=== PATIENT | male | born 1955 | race Caucasian/White ===

== ENCOUNTER 2017-08-22 14:27 | Inpatient (IN) | payer OTHER ==
[2017-08-22] MEDS ORDERED: SODIUM CHLORIDE 0.9% 1,000 ML IV STA (14:53)
[2017-08-22] MEDS ORDERED: IBUPROFEN IV 800 MG in SODIUM CHLORIDE 0.9% 250 ML IV ONE (14:55)
[2017-08-22] MEDS ORDERED: ACETAMINOPHEN IV (For NPO) 1,000 MG in EMPTY BAG 1 BAG IVPB STA (14:56)
--- NOTE | 2017-08-22 15:01 | ED ---
General Adult HPI - General Chief complaint: Abdominal Pain Stated complaint: appendix-sent by Time Seen by Provider: 08/22/17 14:30 Source: patient, RN notes reviewed Mode of arrival: ambulatory Limitations: no limitations - History of Present Illness Initial comments: This is a 61-year-old male who presents to the emergency room complaining of right lower quadrant pain patient states pain started the either Tuesday or Tuesday. Patient states the pain has gotten worse and is definitely worse with movement and hitting any bumps while driving the car. Patient states he went to the urgent care they sent her to the hospital. Patient denies any fever or chills. Patient denies any nausea or vomiting. Patient states he ate yesterday and was still hungry today. Patient denies any recent fever chills or cough patient denies any difficulty breathing shortness of breath. Patient denies any chest pain. Patient denies headache patient denies numbness weakness. Patient denies lightheadedness or dizziness. Patient denies any dysuria hematuria urinary frequency. - Related Data Home Medications Medication Instructions Recorded Confirmed No Known Home Medications [No 08/22/17 08/22/17 Known Home Medications] Allergies Allergy/AdvReac Type Severity Reaction Status Date / Time No Known Allergies Allergy Verified 08/22/17 15:06 Review of Systems ROS Statement: Those systems with pertinent positive or pertinent negative responses have been documented in the HPI. ROS Other: All systems not noted in ROS Statement are negative. Past Medical History Past Medical History: Atrial Fibrillation History of Any Multi-Drug Resistant Organisms: None Reported Additional Past Surgical History / Comment(s): cardiac ablation Past Psychological History: No Psychological Hx Reported Smoking Status: Never smoker Past Alcohol Use History: Occasional Past Drug Use History: Unable to Obtain General Exam - General Exam Comments Initial Comments: GENERAL: Patient is well-developed and well-nourished. Patient is nontoxic and well- hydrated and is in moderate distress. ENT: Neck is soft and supple. No significant lymphadenopathy is noted. Oropharynx is clear. Moist mucous membranes. Neck has full range of motion without eliciting any pain. EYES: The sclera were anicteric and conjunctiva were pink and moist. Extraocular movements were intact and pupils were equal round and reactive to light. Eyelids were unremarkable. PULMONARY: Unlabored respirations. Good breath sounds bilaterally. No audible rales rhonchi or wheezing was noted. CARDIOVASCULAR: There is a regular rate and rhythm without any murmurs gallops or rubs. Femoral pulses are equal bilaterally ABDOMEN: Patient has rebound tenderness on the right lower quadrant. SKIN: Skin is clear with no lesions or rashes and otherwise unremarkable. NEUROLOGIC: Patient is alert and oriented x3. Cranial nerves II through XII are grossly intact. Motor and sensory are also intact. Normal speech, volume and content. Symmetrical smile. MUSCULOSKELETAL: Normal extremities with adequate strength and full range of motion. LYMPHATICS: No significant lymphadenopathy is noted PSYCHIATRIC: Normal psychiatric evaluation. Normal interpersonal interactions appears functionally intact in deals appropriately with others. No signs of depression. No signs of anxiety. Limitations: no limitations Course Vital Signs 08/22/17 08/22/17 14:29 14:52 Temperature 99.9 F H 103.1 F H Pulse Rate 89 Respiratory 18 Rate Blood Pressure 137/82 O2 Sat by Pulse 97 Oximetry Medical Decision Making - Medical Decision Making EKG shows normal sinus rhythm at 82 bpm TN interval 150 QRS is 90 QT interval 350 QTC is 418. Patient's EKG shows no ST segment elevation or depression or T wave abnormalities are noted. CAT scan showed acute appendicitis. I spoke with Dr. Smith. Dr. Smith agreed to accept the admission I wrote admitting orders. - Lab Data Result diagrams: 08/22/17 14:45 08/22/17 14:45 Lab Results 08/22/17 08/22/17 08/22/17 Range/Units 14:45 14:45 14:45 WBC 10.8 H (3.8-10.6) k/uL RBC 5.34 (4.30-5.90) m/uL Hgb 15.1 (13.0-17.5) gm/dL Hct 45.4 (39.0-53.0) % MCV 85.0 (80.0-100.0) fL MCH 28.3 (25.0-35.0) pg MCHC 33.3 (31.0-37.0) g/dL RDW 13.8 (11.5-15.5) % Plt Count 192 (150-450) k/uL Neutrophils % 81 % Lymphocytes % 11 % Monocytes % 6 % Eosinophils % 1 % Basophils % 0 % Neutrophils # 8.7 H (1.3-7.7) k/uL Lymphocytes # 1.2 (1.0-4.8) k/uL Monocytes # 0.7 (0-1.0) k/uL Eosinophils # 0.1 (0-0.7) k/uL Basophils # 0.0 (0-0.2) k/uL PT (9.0-12.0) sec INR (<1.2) APTT (22.0-30.0) sec Sodium 140 (137-145) mmol/L Potassium 4.3 (3.5-5.1) mmol/L Chloride 103 (98-107) mmol/L Carbon Dioxide 23 (22-30) mmol/L Anion Gap 14 mmol/L BUN 15 (9-20) mg/dL Creatinine 1.00 (0.66-1.25) mg/dL Est GFR (CKD-EPI)AfAm >90 (>60 ml/min/1.73 sqM) Est GFR (CKD-EPI)NonAf 80 (>60 ml/min/1.73 sqM) Glucose 100 H (74-99) mg/dL Plasma Lactic Acid Titi 1.5 (0.7-2.0) mmol/L Calcium 9.2 (8.4-10.2) mg/dL Total Bilirubin 1.3 (0.2-1.3) mg/dL AST 24 (17-59) U/L ALT 30 (21-72) U/L Alkaline Phosphatase 39 (38-126) U/L Total Protein 6.9 (6.3-8.2) g/dL Albumin 4.0 (3.5-5.0) g/dL Amylase 56 (30-110) U/L Lipase 88 (23-300) U/L 08/22/17 Range/Units 14:45 WBC (3.8-10.6) k/uL RBC (4.30-5.90) m/uL Hgb (13.0-17.5) gm/dL Hct (39.0-53.0) % MCV (80.0-100.0) fL MCH (25.0-35.0) pg MCHC (31.0-37.0) g/dL RDW (11.5-15.5) % Plt Count (150-450) k/uL Neutrophils % % Lymphocytes % % Monocytes % % Eosinophils % % Basophils % % Neutrophils # (1.3-7.7) k/uL Lymphocytes # (1.0-4.8) k/uL Monocytes # (0-1.0) k/uL Eosinophils # (0-0.7) k/uL Basophils # (0-0.2) k/uL PT 10.2 (9.0-12.0) sec INR 1.0 (<1.2) APTT 22.5 (22.0-30.0) sec Sodium (137-145) mmol/L Potassium (3.5-5.1) mmol/L Chloride (98-107) mmol/L Carbon Dioxide (22-30) mmol/L Anion Gap mmol/L BUN (9-20) mg/dL Creatinine (0.66-1.25) mg/dL Est GFR (CKD-EPI)AfAm (>60 ml/min/1.73 sqM) Est GFR (CKD-EPI)NonAf (>60 ml/min/1.73 sqM) Glucose (74-99) mg/dL Plasma Lactic Acid Titi (0.7-2.0) mmol/L Calcium (8.4-10.2) mg/dL Total Bilirubin (0.2-1.3) mg/dL AST (17-59) U/L ALT (21-72) U/L Alkaline Phosphatase (38-126) U/L Total Protein (6.3-8.2) g/dL Albumin (3.5-5.0) g/dL Amylase (30-110) U/L Lipase (23-300) U/L Disposition Clinical Impression: Acute appendicitis Disposition: ADMITTED IP TO THIS [facility] Referrals: Arturo Torres MD [Primary Care Provider] - 1-2 days Time of Disposition: 16:17
[2017-08-22 15:14] LABS: Basophils % (A) 0 %; Eosinophils # (A) 0.1 k/uL (0-0.7); Eosinophils % (A) 1 %; HCT 45.4 % (39.0-53.0); HGB 15.1 gm/dL (13.0-17.5); Lymphocytes # (A) 1.2 k/uL (1.0-4.8); Lymphocytes % (A) 11 %; MCH 28.3 pg (25.0-35.0); MCHC 33.3 g/dL (31.0-37.0); Mean Platelet Volume 7.1; Monocytes # (A) 0.7 k/uL (0-1.0); Monocytes % (A) 6 %; Neutrophils # (A) 8.7 k/uL (1.3-7.7); Neutrophils % (A) 81 %; Platelet Count 192 k/uL (150-450); RBC 5.34 m/uL (4.30-5.90); RDW 13.8 % (11.5-15.5); WBC 10.8 k/uL (3.8-10.6)
[2017-08-22 15:25] LABS: ALT 30 U/L (21-72); AST 24 U/L (17-59); Alkaline Phosphatase 39 U/L (38-126); Amylase 56 U/L (30-110); Anion Gap 14 mmol/L; Blood Urea Nitrogen 15 mg/dL (9-20); Calcium 9.2 mg/dL (8.4-10.2); Carbon Dioxide 23 mmol/L (22-30); Chloride 103 mmol/L (98-107); Glucose 100 mg/dL (74-99); Lipase 88 U/L (23-300); Potassium 4.3 mmol/L (3.5-5.1); Sodium 140 mmol/L (137-145); Total Bilirubin 1.3 mg/dL (0.2-1.3); Total Protein 6.9 g/dL (6.3-8.2)
[2017-08-22 15:31] LABS: Partial Thromboplastin Time 22.5 sec (22.0-30.0); Prothrombin Time 10.2 sec (9.0-12.0)
[2017-08-22] MEDS ORDERED: PIPERACILLIN-TAZOBACTAM 3.375 GM in DEXTROSE/WATER 1 50ML.BAG IVPB STA (16:11)
--- NOTE | 2017-08-22 16:13 | CT ---
EXAMINATION TYPE: CT abdomen pelvis w con DATE OF EXAM: 08/22/2017 COMPARISON: NONE HISTORY: RLQ pain x2 days CT DLP: 1847 mGycm, Automated Exposure Control for Dose Reduction was Utilized. CONTRAST: CT scan of the abdomen and pelvis is performed without oral but with IV Contrast, patient injected wi th 100 mL of Isovue 300. FINDINGS: LUNG BASES: Calcified 2 mm nodule or granuloma left lung base axial image 9 is noted laterally. LIVER/GB: No significant abnormality is appreciated. PANCREAS: No significant abnormality is seen. SPLEEN: No significant abnormality is seen. ADRENALS: No significant abnormality is seen. KIDNEYS: There is simple appearing 3.3 cm exophytic cyst laterally upper to mid pole level right kidn ey axial image 28 series 3. There is subcentimeter low dense lesion upper to mid pole level series 7 image 31 that is too small to further characterize but presumed benign BOWEL: There is large appendicolith at base of appendix with additional smaller appendicoliths at mid to distal segment. Appendix is abnormally dilated most prominent at the base measuring up to 14 mm i n diameter axial image 57. There is moderate ill-defined surrounding fluid and fat stranding. The CT findings are consistent with acute appendicitis. No well-formed fluid collection or abscess is seen. No pneumoperitoneum is noted. There are a few diverticula scattered throughout the colon. There is no CT evidence for acute diverti culitis. There is no suspicious small or large bowel dilatation. PROSTATE/SEMINAL VESICLES: A few scattered pelvic phleboliths are seen. LYMPH NODES: No greater than 1cm abdominal or pelvic lymph nodes are appreciated. OSSEOUS STRUCTURES: There is moderate multilevel spurring in the thoracic spine. There is moderate di sc space narrowing with vacuum disc phenomenon at lumbosacral junction. There is facet arthropathy in the lower lumbar spine. OTHER: There is moderate fat-containing right inguinal hernia. There are smaller sized fat-containing left inguinal hernia IMPRESSION: CT findings consistent with acute appendicitis as detailed above. Critical results communicated to ordering ER physician via telephone at time of dictation.
[2017-08-22] MEDS ORDERED: SODIUM CHLORIDE 0.9% 1,000 ML IV ONE (16:17)
--- NOTE | 2017-08-22 17:04 | P.GSHP ---
History of Present Illness H&P Date: 08/22/17 Chief Complaint: Right lower quadrant pain This is a 61-year-old male who's had a three-day history of intermittent right lower quadrant pain. Patient presents to the emergency room today due to the pain being present on . He had a CAT scan performed which shows evidence of early appendicitis. Patient is resting in bed comfortable. He denies a significant pain while at rest. He denies any nausea or vomiting. He is hungry. Past Medical History Past Medical History: Atrial Fibrillation History of Any Multi-Drug Resistant Organisms: None Reported Additional Past Surgical History / Comment(s): cardiac ablation Past Psychological History: No Psychological Hx Reported Smoking Status: Never smoker Past Alcohol Use History: Occasional Past Drug Use History: Unable to Obtain Medications and Allergies Home Medications Medication Instructions Recorded Confirmed Type No Known Home Medications [No 08/22/17 08/22/17 History Known Home Medications] Allergies Allergy/AdvReac Type Severity Reaction Status Date / Time No Known Allergies Allergy Verified 08/22/17 15:06 Surgical - Exam Vital Signs Temp Pulse Resp BP Pulse Ox 99.9 F H 89 18 137/82 97 08/22/17 14:29 08/22/17 14:29 08/22/17 14:29 08/22/17 14:29 08/22/17 14:29 - General well developed, no distress - Eyes PERRL - ENT normal pinna - Neck no masses - Respiratory normal expansion - Cardiovascular Rhythm: regular - Abdomen Right lower quadrant pain. There is no rebound or guarding. Abdomen: soft Results - Labs 08/22/17 14:45 08/22/17 14:45 Abnormal Lab Results - Last 24 Hours (Table) 08/22/17 08/22/17 Range/Units 14:45 14:45 WBC 10.8 H (3.8-10.6) k/uL Neutrophils # 8.7 H (1.3-7.7) k/uL Glucose 100 H (74-99) mg/dL Diabetes panel 08/22/17 Range/Units 14:45 Sodium 140 (137-145) mmol/L Potassium 4.3 (3.5-5.1) mmol/L Chloride 103 (98-107) mmol/L Carbon Dioxide 23 (22-30) mmol/L BUN 15 (9-20) mg/dL Creatinine 1.00 (0.66-1.25) mg/dL Glucose 100 H (74-99) mg/dL Calcium 9.2 (8.4-10.2) mg/dL AST 24 (17-59) U/L ALT 30 (21-72) U/L Alkaline Phosphatase 39 (38-126) U/L Total Protein 6.9 (6.3-8.2) g/dL Albumin 4.0 (3.5-5.0) g/dL Calcium panel 08/22/17 Range/Units 14:45 Calcium 9.2 (8.4-10.2) mg/dL Albumin 4.0 (3.5-5.0) g/dL Pituitary panel 08/22/17 Range/Units 14:45 Sodium 140 (137-145) mmol/L Potassium 4.3 (3.5-5.1) mmol/L Chloride 103 (98-107) mmol/L Carbon Dioxide 23 (22-30) mmol/L BUN 15 (9-20) mg/dL Creatinine 1.00 (0.66-1.25) mg/dL Glucose 100 H (74-99) mg/dL Calcium 9.2 (8.4-10.2) mg/dL Adrenal panel 08/22/17 Range/Units 14:45 Sodium 140 (137-145) mmol/L Potassium 4.3 (3.5-5.1) mmol/L Chloride 103 (98-107) mmol/L Carbon Dioxide 23 (22-30) mmol/L BUN 15 (9-20) mg/dL Creatinine 1.00 (0.66-1.25) mg/dL Glucose 100 H (74-99) mg/dL Calcium 9.2 (8.4-10.2) mg/dL Total Bilirubin 1.3 (0.2-1.3) mg/dL AST 24 (17-59) U/L ALT 30 (21-72) U/L Alkaline Phosphatase 39 (38-126) U/L Total Protein 6.9 (6.3-8.2) g/dL Albumin 4.0 (3.5-5.0) g/dL - Imaging CT scan - pelvis: report reviewed (Computed tomography scan shows evidence of appendicitis. There is no abscess or phlegmon.) Assessment and Plan Assessment: Early appendicitis. Patient will be taken for laparoscopic appendectomy in the a.m.
[2017-08-22 18:17] VITALS: BMI 31.3
[2017-08-22] MEDS ORDERED: HYDROmorphone 0.5 MG/0.5 ML SYRINGE IVP PRN ×2 (20:31→22:57)
[2017-08-22] MEDS ORDERED: ACETAMINOPHEN TAB 325 MG TAB PO PRN (20:31)
[2017-08-22 23:05] LABS: Appearance,Urine Clear (Clear); Bilirubin,Urine Negative (Negative); Blood,Urine Trace (Negative); Color,Urine Yellow; Glucose,Urine (UA) Negative (Negative); Ketones,Urine 1+ (Negative); Leukocyte Esterase,Urine Negative (Negative); Mucus,Urine Rare /hpf; Nitrite,Urine Negative (Negative); PH, Urine 5.5 (5.0-8.0); Protein,Urine Trace (Negative); RBC,Urine 2 /hpf (0-5); Squamous Epithelial Cell,Urine 1 /hpf (0-4); Urobilinogen,Urine <2.0 mg/dL (<2.0); WBC,Urine 1 /hpf (0-5)
[2017-08-22 23:07] LABS: Specific Gravity,Urine >1.050 (1.001-1.035)
[2017-08-23] MEDS ORDERED: MORPHINE SULFATE 2 MG/ML SYRINGE IVP STA
[2017-08-23 00:11] LABS: Glucose,Whole Blood 84 mg/dL (75-99)
[2017-08-23 00:20] LABS: HCT 39.4 % (39.0-53.0); HGB 13.4 gm/dL (13.0-17.5); MCH 29.8 pg (25.0-35.0); MCV 87.8 fL (80.0-100.0); Mean Platelet Volume 6.8; Platelet Count 156 k/uL (150-450); RBC 4.49 m/uL (4.30-5.90); RDW 13.8 % (11.5-15.5)
[2017-08-23 00:30] LABS: Anion Gap 15 mmol/L; Blood Urea Nitrogen 13 mg/dL (9-20); Calcium 8.3 mg/dL (8.4-10.2); Carbon Dioxide 20 mmol/L (22-30); Chloride 104 mmol/L (98-107); Glucose 114 mg/dL (74-99); Potassium 4.1 mmol/L (3.5-5.1); Sodium 139 mmol/L (137-145)
[2017-08-23] MEDS ORDERED: SODIUM CHLORIDE 0.9% 1,000 ML IV ONE ×3 (01:21→07:36)
[2017-08-23] MEDS: PIPERACILLIN-TAZOBACTAM 3.375 GM in DEXTROSE/WATER 1 50ML.BAG IVPB SCH ×4 (01:59→23:27)
[2017-08-23] MEDS ORDERED: ACETAMINOPHEN TAB 325 MG TAB PO STA (02:10)
[2017-08-23] MEDS: KETOROLAC 30 MG/ML 1 ML VIAL IVP SCH ×6 (02:21→23:27)
[2017-08-23] MEDS: SODIUM CHLORIDE 0.9% 1,000 ML IV SCH ×4 (02:31→21:14)
[2017-08-23] MEDS: MORPHINE SULFATE 2 MG/ML SYRINGE IVP PRN ×3 (02:31→19:18)
[2017-08-23] MEDS ORDERED: DEXAMETHASONE SOD PHOSPHATE 10 MG/ML 1 ML VIAL IV ONE (07:38)
[2017-08-23] MEDS ORDERED: HEPARIN SODIUM,PORCINE 5,000 UNIT/ML 1 ML VIAL SQ ONE (07:38)
[2017-08-23] MEDS ORDERED: ONDANSETRON 4 MG/2 ML VIAL IVP ONE (07:38)
[2017-08-23] MEDS ORDERED: LIDOCAINE 1% INJ 10MG/ML (20 ML MDV) ONE (07:50)
[2017-08-23] MEDS ORDERED: fentaNYL (PF) 50 MCG/ML 2 ML AMP ONE (07:50)
[2017-08-23] MEDS ORDERED: GLYCOPYRROLATE 0.2 MG/ML 2 ML VIAL ONE (07:50)
[2017-08-23] MEDS ORDERED: ACETAMINOPHEN IV (For NPO) 1,000 MG/100 ML VIAL ONE (07:50)
[2017-08-23] MEDS ORDERED: ePHEDrine SULFATE/0.9% NACL/PF 50 MG/5 ML SYRINGE IV ONE (07:50)
[2017-08-23] MEDS ORDERED: PROPOFOL 10 MG/ML 20 ML VIAL IV ONE (07:50)
[2017-08-23] MEDS ORDERED: ROCURONIUM BROMIDE 10 MG/ML 10 ML VIAL IV ONE (07:50)
[2017-08-23] MEDS ORDERED: MIDAZOLAM 2 MG/2 ML VIAL ONE (07:50)
[2017-08-23] MEDS ORDERED: SUCCINYLCHOLINE CHLORIDE 100 MG/5 ML SYR IV ONE (07:50)
[2017-08-23] MEDS ORDERED: NEOSTIGMINE 1 MG/ML 10 ML VIAL ONE (07:50)
[2017-08-23] MEDS ORDERED: HYDROmorphone (PF) 1 MG/ML ONE (07:50)
[2017-08-23] MEDS ORDERED: ROPIVACAINE 5 MG/ML 30 ML VIAL MISCELLANE ONE (08:21)
[2017-08-23] MEDS ORDERED: LACTATED RINGERS 1,000 ML IV ONE ×2 (08:23→09:11)
--- NOTE | 2017-08-23 09:10 | P.OP ---
Date of Procedure: 08/23/17 Preoperative Diagnosis: Acute appendicitis Postoperative Diagnosis: Acute appendicitis with peritonitis, perforated appendix Procedure(s) Performed: Laparoscopic appendectomy Anesthesia: LEEANN Surgeon: Jules Smith Estimated Blood Loss (ml): 25 Pathology: other (Appendix and base of cecum) Condition: stable Disposition: PACU Description of Procedure: The patient's placed the operative table in the supine position. He received general anesthesia. His abdomen was prepped and draped in usual sterile fashion. An infra umbilical skin incision was made and then using a Arsen clamp the fascia was grasped and then a Veress needles placed into the peritoneal cavity. Position of the Veress needle was confirmed with positive drop test and then the abdomen was insufflated. After adequate insufflation a 5 mm trocar was placed in the pleural cavity and then the laparoscope was placed into the perineal cavity. Next a 12 mm trochars placed in the epigastric position. And a 5 mm trochars placed the suprapubic position. The patient had obvious inflammation of the parietal peritoneum. The cecum was visualized. And then the cecum was rotated medially. And at the base the cecum there was an opening in the appendix. And a fecalith was seen. The fecalith was aspirated. And then the mesial appendix was divided using the Harmonic scissors. The appendiceal stump was divided with the Harmonic scissors. And the appendix was withdrawn through a Endo Catch. Due to the opening of the appendix at the base the cecum a limited see Any was performed by mobilizing the cecum and then using the MAILE stapler to perform a partial Cecetomy. The abdomen was was then irrigated. The abdomen was irrigated with 2 L of normal saline. A DARIA drain was placed into the pelvis and right colic gutter and brought out through the epigastric trocar site. The trochars withdrawn. He was closed interrupted 3-0 Monocryl suture.
[2017-08-23] MEDS ORDERED: BISACODYL 10 MG SUPP RECTAL PRN (09:11)
[2017-08-23] MEDS ORDERED: METOCLOPRAMIDE 5 MG/ML 2 ML VIAL IVP PRN (09:11)
[2017-08-23] MEDS ORDERED: HYDROmorphone 0.5 MG/0.5 ML SYRINGE IVP PRN (09:11)
[2017-08-23] MEDS ORDERED: NALOXONE 0.4 MG/ML 1 ML VIAL IV PRN (09:11)
[2017-08-23] MEDS ORDERED: traMADol 50 MG TAB PO PRN (09:11)
[2017-08-23] MEDS ORDERED: ONDANSETRON 4 MG/2 ML VIAL IVP PRN (09:11)
[2017-08-23] MEDS ORDERED: diphenhydrAMINE 50 MG/ML 1 ML VIAL IVP ONE (09:34)
--- NOTE | 2017-08-23 16:31 | CONS ---
CONSULTATION DATE OF CONSULTATION: 08/23/17 REASON FOR CONSULTATION: Medical management requested by Dr. Smith. CONSULTATION: This is a pleasant 60-year-old patient who follows with Dr. Torres, otherwise normally in good health. The patient had a history prior of atrial fibrillation treated with ablation. The patient presented with increasing abdominal pain coming on for a few days. No nausea, vomiting. No fever. CT scan that showed what appeared to be appendolith. The patient was taken to the OR by Dr. Smith, was found to have a perforated appendix with localized peritonitis. The patient has a drain in place. Abdominal pain is present. No nausea or vomiting. The patient is put on a clear liquid diet and IV Zosyn. REVIEW OF SYSTEMS: CONSTITUTIONAL: Tired. HEENT: None. RESPIRATORY: None. CARDIOVASCULAR: None. GASTROINTESTINAL: As above. GENITOURINARY: None. MUSCULOSKELETAL: None. DERMATOLOGIC, HEMATOLOGIC, LYMPHATIC. None. PSYCHIATRY: None. NEUROLOGICAL: None. PAST MEDICAL HISTORY: Atrial fibrillation with ablation. PAST SURGICAL HISTORY: None. SOCIAL HISTORY: Did smoke in the past. Alcohol occasionally. Patient works as a machinery mechanic. . FAMILY HISTORY: Reviewed, noncontributory to presentation. HOME MEDICATIONS: None. ALLERGIES: None. PHYSICAL EXAMINATION: Temperature 97.4, pulse 54, respiratory 18, blood pressure 107/69, pulse ox 98% on room air. GENERAL APPEARANCE: Well built, BMI 31.3, sitting up, tired appearing. EYES: Pupils equal. Conjunctivae normal. HEENT: External appearance of nose and ears normal. Oral cavity normal. NECK: JVD not raised. Mass not palpable. RESPIRATORY: Effort normal. Lungs, fair entry. CARDIOVASCULAR: First and second sounds, no edema. ABDOMEN: Mild tenderness. No guarding or rigidity. Liver and spleen not palpable. The patient has got a drain in place. LYMPHATIC: No lymph node palpable in neck or axillae. PSYCHIATRY: Alert and oriented x3. Mood and affect normal. INVESTIGATIONS: White count 10.8, hemoglobin 15.1, potassium 4.3. Lactic acid 2.7. UA shows ketone 1+. CT scan of the abdomen and pelvis: Large appendicolith, a few colonic diverticula. Moderate fat containing right inguinal hernia and left inguinal hernia. ASSESSMENT: 1. Acute appendicitis with perforation causing secondary peritonitis. 2. Right inguinal hernia asymptomatic. 3. Colonic diverticulosis asymptomatic. 4. Ketonuria from starvation. 5. Leukocytosis from above. 6. Lactic acidosis from above. PLAN: Patient is already on IV Zosyn and had Flagyl. Patient getting IV fluids. The patient already put on a clear liquid diet. For DVT prophylaxis, patient is on Lovenox. Care was discussed with the patient. Encouraged to be out of bed. Thank you Dr. Smith. MMODL / IJN: [id number] /
[2017-08-23] MEDS: metroNIDAZOLE 500 MG TAB PO SCH ×2 (17:35→21:19)
[2017-08-23] MEDS: HYDROcodone/APAP 5-325MG 1 EACH TAB PO PRN (23:31)
--- NOTE | 2017-08-24 05:13 | CONS ---
CONSULTATION DATE OF SERVICE: 08/23/2017 REASON FOR CONSULTATION: Secondary peritonitis from a ruptured appendicitis and antibiotic management. HISTORY OF PRESENT ILLNESS: The patient is a 61-year-old, male presenting to the ER at [facility] with the chief complaints of pain to the right lower quadrant area for about 3 days prior to presentation to the hospital. The patient said that the pain has been mostly in the right lower abdominal area started around Lauro and was about 3 to 4 in intensity. However, over the next 2 to 3 days the intensity has gone severely to be almost 10/10. The patient describes the pain to be more of a dull aching pain at times sharp and has been radiating across the lower abdominal area. The patient has felt nauseated but denies any high-grade fever. The patient denies any diarrhea or any constipation. With these symptoms the patient presented to the [facility] ER. On arrival to the ER, the patient did have fever of 103.1 degrees Fahrenheit. The patient's white count mildly elevated 10.8. The patient did have a CT of abdomen and pelvis that has been suggestive of large appendicolith at the base of the appendix with additional smaller appendicoliths in [id number] segment. The CT is suspicious for acute appendicitis. The patient was taken to the OR this morning where the patient was noticed to have a acute appendicitis with peritonitis and perforated appendix. The patient is status post laparoscopic appendectomy. Post surgery, the patient has been admitted to the hospital. Infectious Disease was consulted for further recommendation regarding antibiotic therapy. REVIEW OF SYSTEMS: CONSTITUTIONAL: Positive for weakness and fever. EYES: No complaint. ENT: No complaint. RESPIRATORY: No complaint. CARDIOVASCULAR: No complaint. GENITOURINARY: No complaint. GASTROINTESTINAL: As per HPI. MUSCULOSKELETAL: No complaint. INTEGUMENTARY: No complaint. PSYCHOLOGICAL: No complaint. ENDOCRINE: No complaint. NEUROLOGIC: No complaint. PAST MEDICAL HISTORY: Atrial fibrillation. PAST SURGICAL HISTORY: Cardiac ablation. SOCIAL HISTORY: No history of smoking, occasional drinks. No drug use. FAMILY HISTORY: No pertinent findings noticed. ALLERGIES: No known drug allergies. MEDICATION: Medications include the patient is currently on Tylenol, Siloam, Dulcolax, Lovenox, Dilaudid, Toradol, Reglan, Flagyl, morphine sulfate, Narcan, Zofran, Protonix, piperacillin tazobactam and Ultram. PHYSICAL EXAMINATION: On examination, blood pressure is 121/67 with a pulse of 63, temperature 98.4, T -max of 103. He is 96% on room air. General description is a middle-aged male lying in bed in no distress. No tachypnea or accessory muscle of respiration use. HEENT examination shows no pallor or scleral icterus. Oral mucous membrane is dry. No pharyngeal erythema or thrush. NECK: Trachea is central. No thyromegaly. LUNGS: Unlabored breathing, clear to auscultation anteriorly. No wheeze or crackle. HEART: S1, S2. Regular rate and rhythm. No added sounds. ABDOMEN: Soft. The patient did have tenderness of the right lower quadrant area. No guarding. No rigidity. EXTREMITIES: No edema of feet. SKIN EXAMINATION: No rash or mass palpable. NEUROLOGICAL: Patient is awake, alert, oriented X3. Mood and affect normal. LABS: Hemoglobin 13.4, white count of 10, BUN of 13, creatinine 0.90. No OR culture. DIAGNOSTIC IMPRESSION AND PLAN: Patient admitted to the hospital with sepsis in a patient who did have a fever of 103 degrees Fahrenheit, tachycardia and mildly elevated white count, source is the acute appendicitis perforated the likely organism need to cover will be enteric gram- negative both aerobes and anaerobes in patient who has not been on antibiotic in the recent past could be a sensitive pathogen. PLAN: 1. The patient currently on Zosyn 3.375 grams q.8 hourly that will be continued. 2. If the patient spikes any new fever or any change in clinical condition, cultures will be obtained before adjusting antibiotic further. 3. We will follow up on his clinical condition and culture to further adjust medication if needed. Thank you for this consultation. Will follow this patient along with you. MMODL / IJN: [id number] / APARNA
[2017-08-24] MEDS: KETOROLAC 30 MG/ML 1 ML VIAL IVP SCH ×4 (05:35→23:27)
[2017-08-24 07:55] LABS: Basophils % (A) 0 %; Eosinophils # (A) 0.2 k/uL (0-0.7); Eosinophils % (A) 2 %; HCT 37.9 % (39.0-53.0); HGB 12.5 gm/dL (13.0-17.5); Lymphocytes # (A) 1.2 k/uL (1.0-4.8); Lymphocytes % (A) 12 %; MCH 29.1 pg (25.0-35.0); MCHC 33.1 g/dL (31.0-37.0); MCV 87.8 fL (80.0-100.0); Mean Platelet Volume 6.8; Monocytes # (A) 0.5 k/uL (0-1.0); Monocytes % (A) 5 %; Neutrophils % (A) 80 %; Platelet Count 149 k/uL (150-450); RBC 4.32 m/uL (4.30-5.90); RDW 14.2 % (11.5-15.5)
[2017-08-24 08:23] LABS: ALT 26 U/L (21-72); AST 25 U/L (17-59); Albumin 3.2 g/dL (3.5-5.0); Alkaline Phosphatase 27 U/L (38-126); Anion Gap 12 mmol/L; Blood Urea Nitrogen 20 mg/dL (9-20); Calcium 8.4 mg/dL (8.4-10.2); Carbon Dioxide 23 mmol/L (22-30); Chloride 104 mmol/L (98-107); Glucose 97 mg/dL (74-99); Potassium 4.4 mmol/L (3.5-5.1); Sodium 139 mmol/L (137-145); Total Bilirubin 1.9 mg/dL (0.2-1.3); Total Protein 5.9 g/dL (6.3-8.2)
[2017-08-24] MEDS: ENOXAPARIN 40 MG/0.4 ML SYRINGE SQ SCH (08:27)
[2017-08-24] MEDS: PANTOPRAZOLE 40 MG/10 ML VIAL IV SCH (08:27)
[2017-08-24] MEDS: PIPERACILLIN-TAZOBACTAM 3.375 GM in DEXTROSE/WATER 1 50ML.BAG IVPB SCH ×3 (08:27→23:27)
[2017-08-24] MEDS: metroNIDAZOLE 500 MG TAB PO SCH ×3 (08:28→21:38)
[2017-08-24] MEDS: HYDROcodone/APAP 5-325MG 1 EACH TAB PO PRN ×2 (08:36→16:10)
[2017-08-24] MEDS: SODIUM CHLORIDE 0.9% 1,000 ML IV SCH ×2 (11:56→18:24)
[2017-08-24 15:22] VITALS: RESP 16
--- NOTE | 2017-08-24 16:12 | P.PN ---
Subjective Progress Note Date: 08/24/17 Principal diagnosis: Perforated appendicitis The patient is doing well postoperatively. He has minimal complaints of pain. He's been a bleeding in the hallway. Objective - Vital Signs Vital signs: Vital Signs Temp 99.7 F H 08/24/17 15:19 Pulse 75 08/24/17 15:19 Resp 16 08/24/17 15:19 BP 114/72 08/24/17 15:19 Pulse Ox 94 L 08/24/17 15:19 Intake & Output 08/23/17 08/24/17 08/24/17 18:59 06:59 18:59 Intake Total 4970 925 Output Total 375 945 200 Balance 4595 -20 -200 Intake: IV 2600 Intake, IV Titration 1650 625 Amount Lactated Ringers 1,000 ml 1000 @ 150 mls/hr IV .Q6H40M ONE Rx#:[id number] Sodium Chloride 0.9% 1, 650 625 000 ml @ 125 mls/hr IV . Q8H THAIS Rx#:[id number] Oral 720 300 Other 0 Output: Drainage 25 Abdomen 25 Urine 350 920 200 Straight 920 Estimated Blood Loss 25 Other: Voiding Method Toilet # Voids 1 1 - Constitutional General appearance: Present: average body habitus - Gastrointestinal Gastrointestinal Comment(s): Abdomen is soft. Incision sites are clean dry intact. DARIA drain has some serosanguineous drainage. - Labs CBC & Chem 7: 08/24/17 07:32 08/24/17 07:32 Labs: Abnormal Lab Results - Last 24 Hours (Table) 08/24/17 08/24/17 Range/Units 07:32 07:32 Hgb 12.5 L (13.0-17.5) gm/dL Hct 37.9 L (39.0-53.0) % Plt Count 149 L (150-450) k/uL Neutrophils # 8.0 H (1.3-7.7) k/uL Total Bilirubin 1.9 H (0.2-1.3) mg/dL Alkaline Phosphatase 27 L (38-126) U/L Total Protein 5.9 L (6.3-8.2) g/dL Albumin 3.2 L (3.5-5.0) g/dL Assessment and Plan Assessment: Acute appendicitis. Patient received IV antibiotics. We dissected discharged home the next 24-48 hours.
--- NOTE | 2017-08-24 17:44 | PN ---
DATE OF SERVICE: 08/24/2017. REASON FOR FOLLOWUP: Secondary peritonitis from ruptured appendicitis. INTERVAL HISTORY: The patient is afebrile. Abdominal pain seems to be currently controlled with pain medication. No significant chest pain, shortness of breath, or any cough. EXAMINATION: Blood pressure 114/72 with a pulse of 75, temperature 99.7, he is 94% on room air. GENERAL DESCRIPTION: A middle-aged male lying in bed in no distress. RESPIRATORY SYSTEM: Unlabored breathing. Clear to auscultation anteriorly. HEART: S1, S2. Regular rate and rhythm. ABDOMEN: Soft, no tenderness. no drainage at site of incision. LABS: Hemoglobin is 12.5, white count of 10 with a BUN of 20, creatinine 1.01. DIAGNOSTIC IMPRESSION AND PLAN: Patient with secondary peritonitis from a perforated appendicitis, status post laparoscopic appendectomy. The patient is currently covered with Zosyn which will be continued. Hopefully transition to oral once the oral intake is improved. Continue supportive care. MMODL / IJN: [id number] / APARNA
--- NOTE | 2017-08-24 18:53 | PN ---
PROGRESS NOTE DATE OF SERVICE: 08/24/2017 PRESENTING COMPLAINT: Abdominal pain. INTERVAL HISTORY: Patient is status post acute appendicitis with perforation and secondary peritonitis. The patient has been on clear liquids. No nausea, vomiting. Has not passed any flatus. Abdominal pain is present. Has been out of bed. REVIEW OF SYSTEMS: Done for constitutional, cardiovascular, GI, pulmonary; relevant findings as above. CURRENT MEDICATIONS: Reviewed that include: 1. IV Zosyn. 2. IV fluids. EXAMINATION: Temperature 99.9, pulse 85, respirations 20, blood pressure 152/71, pulse ox 90% on room air. GENERAL APPEARANCE: Lying in bed awake, comfortable. EYES: Pupils equal. Conjunctivae normal. HEENT: External appearance of nose and ears normal. Oral cavity normal. NECK: JVD not raised. Mass not palpable. RESPIRATORY: Effort normal. Lungs are clear. CARDIOVASCULAR: First and second sounds normal. No edema. ABDOMEN: Mild tenderness. No guarding or rigidity. Liver and spleen not palpable. Drain in place. PSYCHIATRY: Alert and oriented x3. Mood and affect were normal. INVESTIGATIONS: White count 10, hemoglobin 12.5. Potassium 4.4. ASSESSMENT: 1. Acute appendicitis with perforation causing secondary peritonitis. 2. Right inguinal hernia, asymptomatic. 3. Colonic diverticulosis, asymptomatic. 4. Ketonuria from starvation. 5. Leukocytosis from above. 6. Lactic acidosis from above. PLAN: Patient is improving. Encouraged to ambulate. Continue with IV antibiotics, IV fluids. Diet to be advanced per Dr. Smith. MMODL / IJN: [id number] /
[2017-08-25] MEDS: KETOROLAC 30 MG/ML 1 ML VIAL IVP SCH ×2 (04:51→13:19)
[2017-08-25 05:23] VITALS: BP 125/62; PULSE 90; TEMP 99.7
[2017-08-25] MEDS: PIPERACILLIN-TAZOBACTAM 3.375 GM in DEXTROSE/WATER 1 50ML.BAG IVPB SCH (08:55)
[2017-08-25] MEDS: ENOXAPARIN 40 MG/0.4 ML SYRINGE SQ SCH (08:55)
[2017-08-25] MEDS: PANTOPRAZOLE 40 MG/10 ML VIAL IV SCH (08:56)
[2017-08-25] MEDS: metroNIDAZOLE 500 MG TAB PO SCH (08:56)
[2017-08-25] MEDS: SODIUM CHLORIDE 0.9% 1,000 ML IV SCH ×2 (09:48→13:30)
--- NOTE | 2017-08-25 13:39 | P.DS ---
Providers Date of admission: 08/22/17 16:18 Expected date of discharge: 08/25/17 Attending physician: Jules Smith Consults: 08/23/17 09:11 Consult Physician Routine Consulting Provider: Alex Smith Consult Reason/Comments: Medical management Do you want consulting provider notified?: Yes Consult Physician Routine Consulting Provider: Maritza Barksdale Consult Reason/Comments: Appendicitis Do you want consulting provider notified?: Yes Primary care physician: [facility] Course: 61-year-old male presented on the day of admission to the emergency room with persistent episode of having intermittent right lower quadrant abdominal pain. Patient stated the pain started last it became more symptomatic presented to the emergency room with no improvement. had a CAT scan done in the abdomen and pelvis which did show evidence of early appendicitis. Patient did undergo on August 23 laparoscopic appendectomy for acute appendicitis with peritonitis with perforated appendix. A DARIA drain was placed to the right gutter. Patient was started on IV antibiotics monitored closely temp was 99.7 was up ambulatory on the unit was anxious to be discharged stated pain medication was effective for pain control. Subsequently the patient was discharged home. Impression discharge diagnosis Present on admission intermittent right lower quadrant pain febrile leukocytosis meets SIRS criteria suspect due to acute appendicitis August 23 laparoscopic appendectomy done for acute appendicitis with peritonitis with perforated appendix History of atrial fibrillation with prior ablation with EKG on admission showing normal sinus rhythm The above impression and plan of care have been discussed and directed by signing physician. Nathalie Mesa nurse practitioner acting as scribe for signing physician. Plan - Discharge Summary Discharge Rx Participant: No New Discharge Prescriptions: New Levofloxacin [Levaquin] 500 mg PO DAILY #7 tab metroNIDAZOLE [Flagyl] 500 mg PO TID #30 tab Acetaminophen [Tylenol] 650 mg PO Q4-6H PRN #30 tab PRN Reason: Mild Breakthrough Pain HYDROcodone/APAP 5-325MG [[place] 5-325] 1 tab PO Q4HR PRN 3 Days #12 tab PRN Reason: Mild Breakthrough Pain Ibuprofen [Motrin] 400 mg PO Q8HR PRN #30 tab PRN Reason: Moderate Pain Discharge Medication List Acetaminophen [Tylenol] 650 mg PO Q4-6H PRN #30 tab 08/25/17 [Rx] HYDROcodone/APAP 5-325MG [[place] 5-325] 1 tab PO Q4HR PRN 3 Days #12 tab [Rx] Ibuprofen [Motrin] 400 mg PO Q8HR PRN #30 tab 08/25/17 [Rx] Levofloxacin [Levaquin] 500 mg PO DAILY #7 tab 08/25/17 [Rx] metroNIDAZOLE [Flagyl] 500 mg PO TID #30 tab 08/25/17 [Rx] Follow up Appointment(s)/Referral(s): Arturo Torres MD [Primary Care Provider] - 1-2 days Jules Smith MD [STAFF PHYSICIAN] - 1 Week Activity/Diet/Wound Care/Special Instructions: No tub bath for six weeks. Shower daily. No lifting over 10 pounds for the next 6 weeks. Monitor DARIA drain and record. May use ice packs to surgical site. No driving while taking narcotic for pain. To not remove the plastic dressing from surgical site until seen in a follow-up visit Discharge Disposition: HOME SELF-CARE
--- NOTE | 2017-08-25 14:51 | PN ---
PROGRESS NOTE DATE OF SERVICE: 08/25/2017. REASON FOR FOLLOWUP: Acute appendicitis with appendiceal abscess. INTERVAL HISTORY: The patient is currently afebrile. He is feeling better. Abdominal pain has improved down to about 1 out of 10. Denies any nausea, vomiting. Has been tolerating his diet. Did have small bowel movement and did have a lot of gas. EXAMINATION: Blood pressure 125/52 with a pulse of 90, temperature 99.7. He is 94% on room air. General description is a middle aged male up in the chair in no distress. RESPIRATORY SYSTEM: Unlabored breathing. Clear to auscultation anteriorly. HEART: S1, S2. Regular rate and rhythm. ABDOMEN: Soft, no tenderness. LABS: Hemoglobin is 12.5, white count of 10 with a BUN of 20, creatinine 1.01. DIAGNOSTIC IMPRESSION AND PLAN: Patient with secondary peritonitis from ruptured appendicitis. Overall improvement on Zosyn. To finish therapy with oral Augmentin 875 b.i.d. for 10 days. Continue supportive care. MMODL / IJN: [id number] /
[2017-08-26] MEDS ORDERED: PANTOPRAZOLE 40 MG TABLET PO SCH (07:30)
--- NOTE | 2017-08-26 10:38 | CDI ---
Last Revision, February 2017 Documentation Clarification Form Date: 11/07/17 From: Gloria Arriaga Phone: If you have a question regarding this query, please contact Columba Guajardo at [phone] between 8am and 5pm. Admit Date: 08/22/2017 4:18:00 PM Patient Name: Osman Lopes Visit Number: [id number] Discharge Date: 08/25/17 ATTENTION: The Clinical Documentation Specialists (CDI) and [facility] Coding Staff appreciate your assistance in clarifying documentation. Please respond to the clarification below the line at the bottom and electronically sign. The CDI & [facility] Coding staff will review the response and follow-up if needed. Please note: Queries are made part of the Legal Health Record. If you have any questions, please contact the author of this message via ITS. Nathalie Mesa/Dr. Smith Sepsis is documented in Dr. Barksdale's consult note. But discharge summary dictated by Nathalie Mesa NP, states "febrile, leukocytosis meets SIRS criteria suspect due to acute appendicitis." History/Risk Factors: Patient was admitted with acute appendicitis with perforation and peritonitis Clinical Indicators: Fever, leukocytosis, elevated lactic acid WBC/Left Shift: 10.8 on admission Lactic acid: 1.5 on admission, 2.7 on the second day Vitals signs on admission: T. 99.9 on admit then 103.1 30 minutes later, P. 89, R. 18 on admit then up to 28 a few hours later, BP 137/82 Antibiotics: IV Zosyn, PO Flagyl IV Bolus: Sodium Chloride 1000 mls @999 mls/hr In your professional opinion, please clarify if these findings signify one of the following conditions: Sepsis ruled out SIRS, without underlying infectious process Sepsis confirmed/possible due to Other, please specify Unable to determine MTDD
--- NOTE | 2017-08-30 12:32 | PN ---
PROGRESS NOTE DATE OF SERVICE: 08/25/2017 PRESENTING COMPLAINT: Abdominal pain. INTERVAL HISTORY: Patient is status post acute appendicitis with perforation and secondary peritonitis. Diet has been advanced. Doing better. No nausea, vomiting, passed flatus. Has been up in the hallway. REVIEW OF SYSTEMS: Review of systems done for constitutional, cardiovascular, GI, pulmonary; relevant findings as above. CURRENT MEDICATIONS: Current medications are reviewed. PHYSICAL EXAMINATION: On examination, temperature 99.7, pulse 90, respirations 16, blood pressure 125/62, pulse ox 94% on room air. GENERAL APPEARANCE: Sitting up, more comfortable. EYES: Pupils equal. Conjunctivae normal. HENT: External appearance of the nose and ears normal. Oral cavity normal. NECK: JVD not raised. Mass not palpable. RESPIRATORY: Effort . Lungs are clear. CARDIOVASCULAR: First and second sounds normal. No edema. ABDOMEN: Minimal tenderness. Liver and spleen not palpable. No guarding or rigidity. PSYCHIATRY: Alert and oriented x3. Mood and affect normal. INVESTIGATIONS: No lab work from today. ASSESSMENT: 1. Acute appendicitis with perforation causing secondary peritonitis with clinical improvement. 2. Right inguinal hernia, asymptomatic. 3. Colonic diverticulosis, asymptomatic. 4. Ketonuria from starvation. 5. Leukocytosis from above, improved. 6. Lactic acidosis from above. PLAN: Patient doing much better. Diet has been advanced. Doing well. MMODL / IJN: [id number] /
== END 2017-08-25 14:58 | disposition home or self-care (01) | DRG 340 ==
LOC: EC 14:27 → 5MS5E 16:18
PROVIDERS: ADMIT Surgery; ATTEND Surgery
PROC: 0DTJ4ZZ Resection of Appendix, Percutaneous Endoscopic Approach (ICD-10-PCS; principal; 2017-08-23 07:30)
DX: K35.3 Acute appendicitis with localized peritonitis (principal); K38.1 Appendicular concretions; K57.30 Diverticulosis of large intestine without perforation or abscess without bleeding; K40.90 Unilateral inguinal hernia, without obstruction or gangrene, not specified as recurrent; Z87.891 Personal history of nicotine dependence
CPT/HCPCS: 36415; 74177; 80048; 80053; 81001; 82150; 83605; 83690; 85025; 85027; 85610; 85730; 88304; 93005; 96361; 96365; 96367; 96375; 99285